=== PATIENT | female | born 1955 | race Caucasian/White ===

== ENCOUNTER 2017-11-04 20:30 | Emergency (ER) | payer BC, OTHER ==
[~2017-11-04] VITALS: Ht 170.2 cm; Wt 76.3 kg
[~2017-11-04 20:30] MED LIST: ALEN70TA39 PO; ASPI81TA82 PO; CENTTAB9 PO; FOLI1 PO; GLUC250C5; LEVO.025 PO; LISI-586 PO; METH2.5 PO; MOBI7.5T PO; NEPHRO PO; ULTR50TA PO; VITA400C28 PO
[2017-11-04 20:33] VITALS: BP 145/68; PULSE 100; RESP 16; TEMP 98.7; O2SAT 98
--- NOTE | 2017-11-04 21:16 | PD ---
HPI Chief Complaint: Abdominal Pain Time Seen by Provider: 21:14 Travel History International Travel<30 days: No Contact w/Intl Traveler<30days: No Traveled to known affect area: No History of Present Illness HPI 62-year-old female came to the emergency room with history of left lower quadrant abdominal pain that has been going on for past 2 days. Patient has history of diverticulosis. Her concern was if she has diverticulitis. She has been having some constipation alternating with diarrhea. She describes the diarrhea as mucousy with some blood in it 2 days ago. No bleeding today. Patient was recommended by her primary care to come to the emergency room. No history of nausea vomiting. Vital signs were relatively stable. Pain is worse upon movement. No radiation of the pain. PFSH Past Medical History Narrative Medical List of her past medical, surgical, social and family history reviewed from the nursing note. Hx Anticoagulant Therapy: No Arthritis: Yes Asthma: No Autoimmune Disease: No Blood Disorders: No Anxiety: Yes Depression: No Heart Rhythm Problems: No Cancer: No Cardiovascular Problems: Yes (HTN) High Cholesterol: No Chemotherapy: No Chest Pain: No Congestive Heart Failure: No COPD: No Cerebrovascular Accident: Yes (Stroke) Diabetes: No Diminished Hearing: No Endocrine: No Gastrointestinal Disorders: No GERD: Yes Glaucoma: No Genitourinary: No Headaches: No Hepatitis: No Hiatal Hernia: No Hypertension: Yes Immune Disorder: No Implanted Vascular Access Dvce: No Kidney Stones: No Musculoskeletal: No Neurologic: No Psychiatric: No Reproductive: No Respiratory: No Migraines: No Myocardial Infarction: No Radiation Therapy: No Renal Failure: No Seizures: No Sickle Cell Disease: No Sleep Apnea: No Thyroid Disease: No Ulcer: No ?: Not Menopausal: Yes Past Surgical History Abdominal Surgery: No AICD: No Appendectomy: No Cardiac Surgery: No Cholecystectomy: No Ear Surgery: No Endocrine Surgery: No Eye Surgery: No Genitourinary Surgery: No Gynecologic Surgery: No Insulin Pump: No Joint Replacement: No Neurologic Surgery: No Oral Surgery: No Pacemaker: No Thoracic Surgery: No Other Surgery: Yes (RT ENDARDERECTOMY) Social History Alcohol Use: Yes Tobacco Use: No (quit 2 weeks ago) Substance Use: No Allergies-Medications (Allergen,Severity, Reaction): Coded Allergies: No Known Allergies (Verified Adverse Reaction, Unknown, 11/04/17) Comments No known drug allergies. Reported Meds & Prescriptions Reported Meds & Active Scripts Active Reported Meloxicam 7.5 Mg Tab 7.5 Mg PO DAILY Omeprazole 10 Mg Cap 10 Mg PO DAILY Probiotic (Lactobacillus Acidophilus) 10 Billion Cell Cap 1 Cap PO TIDAC Amitiza (Lubiprostone) 8 Mcg Cap 8 Mg PO BID Enbrel PF Inj (Etanercept) 50 mg/ml Syr 50 Mg SQ Q7D Synthroid (Levothyroxine Sodium) 50 Mcg Tab 50 Mcg PO DAILY Lisinopril 2.5 Mg Tab 2.5 Mg PO DAILY Narrative Medication List of her home medications reviewed from the nursing note. Review of Systems Except as stated in HPI: all other systems reviewed are Neg Gastrointestinal: Positive: Diarrhea, Abdominal Pain, Constipation Physical Exam Narrative GENERAL: Awake, alert, moderate distress SKIN: Focused skin assessment warm/dry. HEAD: Atraumatic. Normocephalic. EYES: Pupils equal and round. No scleral icterus. No injection or drainage. ENT: No nasal bleeding or discharge. Mucous membranes pink and moist. NECK: Trachea midline. No JVD. CARDIOVASCULAR: Regular rate and rhythm. No murmur appreciated. RESPIRATORY: No accessory muscle use. Clear to auscultation. Breath sounds equal bilaterally. GASTROINTESTINAL: Abdomen soft, non-tender, tender left lower quadrant and left side of the abdomen. Hepatic and splenic margins not palpable. MUSCULOSKELETAL: No obvious deformities. No clubbing. No cyanosis. No edema. NEUROLOGICAL: Awake and alert. No obvious cranial nerve deficits. Motor grossly within normal limits. Normal speech. PSYCHIATRIC: Appropriate mood and affect; insight and judgment normal. Data Data Last Documented VS Vital Signs Date Time Temp Pulse Resp B/P (MAP) Pulse Ox O2 Delivery O2 Flow Rate FiO2 11/05/17 00:17 68 16 126/72 (90) 99 11/04/17 22:52 Room Air 11/04/17 20:33 98.7 Orders Orders Complete Blood Count With Diff (11/04/17 21:48) Comprehensive Metabolic Panel (11/04/17 21:48) Lipase (11/04/17 21:48) Urinalysis - C+S If Indicated (11/04/17 21:48) Ct Abd/Pel W/O Iv Contrast (11/04/17 21:48) Iv Access Insert/Monitor (11/04/17 21:48) Ecg Monitoring (11/04/17 21:48) Oximetry (11/04/17 21:48) Morphine Inj (Morphine Inj) (11/04/17 22:00) Ondansetron Inj (Zofran Inj) (11/04/17 22:00) Sodium Chlor 0.9% 1000 Ml Inj (Ns 1000 M (11/04/17 21:48) Sodium Chloride 0.9% Flush (Ns Flush) (11/04/17 22:00) Ed Discharge Order (11/04/17 22:53) Labs Laboratory Tests Test 11/04/17 22:14 11/04/17 22:44 Urine Color YELLOW Urine Turbidity CLEAR Urine pH 6.0 Urine Specific [place] GREATER/EQUAL 1.030 Urine Protein NEG mg/dL Urine Glucose (UA) NEG mg/dL Urine Ketones TRACE mg/dL Urine Occult Blood MOD Urine Nitrite NEG Urine Bilirubin NEG Urine Urobilinogen 0.2 MG/DL Urine Leukocyte Esterase NEG Urine RBC 10-14 /hpf Urine WBC 0-2 /hpf Urine Squamous Epithelial Cells 6-8 /hpf Urine Bacteria NONE /hpf Microscopic Urinalysis Comment CULT NOT INDICATED Blood Urea Nitrogen 23 MG/DL Creatinine 1.00 MG/DL Random Glucose 96 MG/DL Total Protein 7.3 GM/DL Albumin 3.2 GM/DL Calcium Level 8.7 MG/DL Alkaline Phosphatase 85 U/L Aspartate Amino Transf (AST/SGOT) 24 U/L Alanine Aminotransferase (ALT/SGPT) 25 U/L Total Bilirubin 0.4 MG/DL Sodium Level 139 MEQ/L Potassium Level 4.4 MEQ/L Chloride Level 105 MEQ/L Carbon Dioxide Level 28.1 MEQ/L Anion Gap 6 MEQ/L Estimat Glomerular Filtration Rate 57 ML/MIN Lipase 121 U/L White Blood Count 6.4 TH/MM3 Red Blood Count 3.96 MIL/MM3 Hemoglobin 12.2 GM/DL Hematocrit 36.4 % Mean Corpuscular Volume 91.9 FL Mean Corpuscular Hemoglobin 30.9 PG Mean Corpuscular Hemoglobin Concent 33.6 % Red Cell Distribution Width 12.2 % Platelet Count 266 TH/MM3 Mean Platelet Volume 7.8 FL Neutrophils (%) (Auto) 55.3 % Lymphocytes (%) (Auto) 32.0 % Monocytes (%) (Auto) 9.2 % Eosinophils (%) (Auto) 2.7 % Basophils (%) (Auto) 0.8 % Neutrophils # (Auto) 3.4 TH/MM3 Lymphocytes # (Auto) 2.1 TH/MM3 Monocytes # (Auto) 0.6 TH/MM3 Eosinophils # (Auto) 0.2 TH/MM3 Basophils # (Auto) 0.1 TH/MM3 CBC Comment DIFF FINAL Differential Comment MDM Medical Decision Making Medical Screen Exam Complete: Yes Emergency Medical Condition: Yes Medical Record Reviewed: Yes Differential Diagnosis Acute diverticulitis, colitis, UTI Narrative Course 10:46 PM awaiting for the blood test results and CAT scan to be done and resulted. Patient is getting IV fluid and pain medication. 10:[address] scan was negative. Patient will be discharged home. Procedures EKG Prior to Arrival: No Diagnosis Primary Impression: Abdominal pain Qualified Codes: R10.32 - Left lower quadrant pain Referrals: Primary Care Physician 3 days Additional Instructions: Clear liquid diet for next 24-48 hours. Follow-up with your primary care. Please return to the ER if condition worsens or any new concerns. Med/Other Pt SpecificInfo: No Change to Meds Disposition: 01 DISCHARGE HOME Condition: Stable Beltran Mayorga MD Nov 04, 2017 21:16
[2017-11-04] MEDS ORDERED: ENBR50IN2 SQ (21:35)
[2017-11-04] MEDS ORDERED: OMEP10CA PO (21:35)
[2017-11-04] MEDS ORDERED: LEVO.05 PO (21:35)
[2017-11-04] MEDS ORDERED: LACTCAP8 PO (21:35)
[2017-11-04] MEDS ORDERED: MELO7.5T27 PO (21:35)
[2017-11-04] MEDS ORDERED: LISI2.5T3 PO (21:35)
[2017-11-04] MEDS ORDERED: AMIT8CAP6 PO (21:35)
[2017-11-04] MEDS ORDERED: SODIUM CHLOR 0.9% 1000 ML INJ 1,000 ML IV SCH (21:48)
[2017-11-04] MEDS ORDERED: SODIUM CHLORIDE 0.9% FLUSH 10 ML FLUSH IV FLUSH PRN (22:00)
[2017-11-04] MEDS ORDERED: ONDANSETRON HCL 4 MG/2 ML VIAL IVP ONE (22:00)
[2017-11-04] MEDS ORDERED: MORPHINE SULFATE 4 MG/ML INJ IV PUSH ONE (22:00)
[2017-11-04 22:26] VITALS: RESP 16; O2SAT 97
[2017-11-04 22:26] LABS: BILIRUBIN, URINE NEG (NEG); BLOOD, URINE MOD (NEG); GLUCOSE,URINE NEG (NEG); KETONE, URINE TRACE mg/dL (NEG); NITRITE,URINE NEG (NEG); URINE COLOR YELLOW (YELLW/STRAW); URINE LEUKOCYTE ESTERASE NEG (NEG)
[2017-11-04 22:32] LABS: CHLORIDE 105 MEQ/L (98-107); SODIUM (NA) 139 MEQ/L (136-145)
[2017-11-04 22:37] LABS: ALBUMIN 3.2 GM/DL (3.4-5.0); BICARBONATE 28.1 MEQ/L (21.0-32.0); BLOOD UREA NITROGEN 23 MG/DL (7-18); CALCIUM 8.7 MG/DL (8.5-10.1); GLUCOSE,RANDOM 96 MG/DL (74-106)
[2017-11-04 22:40] LABS: ALT (GPT) 25 U/L (10-53); AST (GOT) 24 U/L (15-37); GLOMERULAR FILTRATION RATE 57 ML/MIN (>89)
[2017-11-04 22:42] LABS: TOTAL BILIRUBIN ADULT 0.4 MG/DL (0.2-1.0); TOTAL PROTEIN 7.3 GM/DL (6.4-8.2)
[2017-11-04 22:43] LABS: ALKALINE PHOSPHATASE 85 U/L (45-117)
[2017-11-04 22:44] LABS: WBC, URINE 0-2 /hpf (0-5)
[2017-11-04 22:49] LABS: AUTOMATED NEUTROPHIL # 3.4 TH/MM3 (1.8-7.7); BASOPHIL # 0.1 TH/MM3 (0-0.2); BASOPHIL % 0.8 % (0.0-2.0); EOSINOPHIL # 0.2 TH/MM3 (0-0.4); EOSINOPHIL % 2.7 % (0.0-4.0); HEMATOCRIT 36.4 % (35.0-46.0); HEMOGLOBIN 12.2 GM/DL (11.6-15.3); LYMPHOCYTE # 2.1 TH/MM3 (1.0-4.8); MEAN CELL VOLUME 91.9 FL (80.0-100.0); MEAN CORPUSCULAR HEMOGLOBIN 30.9 PG (27.0-34.0); MEAN CORPUSCULAR HGB CONC 33.6 % (32.0-36.0); MEAN PLATELET VOLUME 7.8 FL (7.0-11.0); MONO % 9.2 % (0.0-8.0); MONOCYTE # 0.6 TH/MM3 (0-0.9); NEUT % 55.3 % (16.0-70.0); PLATELET COUNT 266 TH/MM3 (150-450); RED BLOOD COUNT 3.96 MIL/MM3 (4.00-5.30); RED CELL DISTRIBUTION WIDTH 12.2 % (11.6-17.2); WHITE BLOOD COUNT 6.4 TH/MM3 (4.0-11.0)
--- NOTE | 2017-11-04 22:51 | RADRPT ---
EXAM DATE/TIME: 11/04/2017 22:25 [facility] COMPARISON: No previous studies available for comparison. INDICATIONS : Left lower quadrant abdomen pain with diarrhea. ORAL CONTRAST: No oral contrast ingested. RADIATION DOSE: 17.69 CTDIvol (mGy) MEDICAL HISTORY : Hypertension. Diverticulitis. SURGICAL HISTORY : None. ENCOUNTER: Initial ACUITY: 1 day PAIN SCALE: 7/10 LOCATION: Left lower quadrant abdomen TECHNIQUE: Volumetric scanning of the abdomen and pelvis was performed. Using automated exposure control and ad justment of the mA and/or kV according to patient size, radiation dose was kept as low as reasonably achievable to obtain optimal diagnostic quality images. DICOM format image data is available electro nically for review and comparison. FINDINGS: The lower lungs are clear. The liver is free of focal defects. Gallbladder is small and contracted. The spleen and pancreas appear normal The adrenal glands are unremarkable Right and left kidneys appear normal There is no adenopathy or ascites Extensive vascular calcifications are noted with aortoiliac disease. In the pelvis there is no evidence for colitis. I do not see for diverticulitis. Adnexal regions are unremarkable. Uterus appears small. There is no free fluid. Extensive degenerative changes are seen in the lower lumbar spine. CONCLUSION: I do not see an etiology for the patient's abdominal pain or diarrhea. Henrique Bai MD FACR on November 04, 2017 at 22:46 Board Certified Radiologist. This report was verified electronically.
[2017-11-04 22:52] VITALS: BP 110/57; PULSE 93; RESP 16; O2SAT 99
[2017-11-04 23:02] VITALS: RESP 16
[2017-11-05 00:17] VITALS: BP 126/72
== END 2017-11-05 00:19 | disposition home or self-care (01) ==
LOC: PHED 20:30
DX: R10.32 Left lower quadrant pain (principal); R19.7 Diarrhea, unspecified; K59.00 Constipation, unspecified; M19.90 Unspecified osteoarthritis, unspecified site; F41.9 Anxiety disorder, unspecified; I10 Essential (primary) hypertension; K21.9 Gastro-esophageal reflux disease without esophagitis; Z87.19 Personal history of other diseases of the digestive system; Z86.73 Personal history of transient ischemic attack (TIA), and cerebral infarction without residual deficits
CPT/HCPCS: 74176; 80053; 81001; 83690; 85025; 96361; 96374; 96375; 99284; J2270; J2405; J7030